=== PATIENT | female | born 1935 | race African-American/Black ===

== ENCOUNTER 2017-08-22 06:30 | Emergency (ER) | payer MEDICARE ==
[~2017-08-22 06:30] MED LIST: CALCIUM CHLORIDE 1,000 MG/10 ML DISP.SYRIN IV ONE; EPINEPHrine SYRINGE 1 MG/10 ML SYRINGE ONE; MAGNESIUM SULFATE PREMIX 1 GM/100 ML BAG. IV ONE; SODIUM BICARB ADULT 8.4% 50 MEQ/50 ML DISP.SYRIN. ONE
--- NOTE | 2017-08-22 07:17 | PHYS DOC ---
Adult General Chief Complaint Chief Complaint: CPR/FULL ARREST HPI HPI Patient is a 81 year old F who presents with CODE BLUE are or pulmonary arrest with CPR in progress. Patient has been called EMS and patient was found in cardiac arrest, not breathing and no pulse. Patient was on her way to dialysis. EMS started CPR right away and did approximate 30 minutes of CPR prior to coming to the emergency room. Upon arrival to emergency room patient was being bagged with active CPR in progress. Review of Systems Review of Systems Unable to obtain secondary to patient's clinical condition and active CPR in progress All other systems were reviewed and found to be within normal limits, except as documented in this note. Physical Exam Physical Exam GEN.: severe distress HEENT: Head is normocephalic, atraumatic NECK: Supple. LUNGS: No spontaneous respirations on exam HEART: No heartbeat ABDOMEN: Soft, nontender. No abdominal distention EXTREMITIES: Without any cyanosis. SKIN: No ulcerations EKG EKG [] Radiology/Procedures Radiology/Procedures Indication: Respiratory failure, CPR in progress Consent: Unable to give consent due to emergent nature. Medications Used: see nursing note Procedure: The patient was placed in the appropriate position. Intubation was performed [place] scope 7.5 endotracheal tube. 22 at the lip. Initial confirmation of placement included bilateral breath sounds, tube fogging, adequate chest rise, adequate pulse oximetry reading. The patient tolerated the procedure well. Complications: none.[] CPR was followed per ACLS protocol please see code sheet for further details of code. Course & Med Decision Making Course & Med Decision Making Pertinent Labs and Imaging studies reviewed. (See chart for details) ED course: Patient was seen and examined upon arrival to the emergency room with active CPR in progress Patient was intubated upon arrival to the emergency room and CPR was continued Multiple rounds of CPR were provided please see code sheet for further details 0644: Time of was called and bedside ultrasound showed no cardiac activity compatible with life 0712: Met with family in the quiet room [] Dragon Disclaimer Dragon Disclaimer This electronic medical record was generated, in whole or in part, using a voice recognition dictation system. Departure Departure Impression: Primary Impression: Cardiac arrest Disposition: 20 Condition: TOÑO GAUTHIER DO Aug 22, 2017 07:17
== END 2017-08-22 09:37 | disposition expired ==
LOC: ER 06:30 → EDBD 06:30 → ER 09:37
DX: I46.9 Cardiac arrest, cause unspecified (principal); Z99.2 Dependence on renal dialysis
CPT/HCPCS: 31500; 82962; 92950; 99285; J0171; J3475; J3490